=== PATIENT | female | born 1975 ===

== ENCOUNTER 2018-10-09 07:19 | Outpatient (CLI) | payer OTHER | END 2018-10-09 07:27 | disposition home or self-care (01) | LOC: SONOGRAMA 07:19 | DX: N83.291 Other ovarian cyst, right side (principal) ==

== ENCOUNTER 2018-10-09 08:12 | Outpatient (CLI) | payer OTHER | END 2018-10-09 15:22 | disposition home or self-care (01) | LOC: LAB 08:12 | DX: N83.291 Other ovarian cyst, right side (principal) ==

== ENCOUNTER 2025-04-14 07:04 | Outpatient (CLI) | payer OTHER | END 2025-04-14 07:16 | disposition home or self-care (01) | LOC: RAD 07:04 | PROVIDERS: ATTEND Physical Medicine & Rehabilitation | DX: M25.512 Pain in left shoulder (principal); M54.2 Cervicalgia ==